=== PATIENT | male | born 1995 | race Caucasian/White ===

== ENCOUNTER 2018-07-14 10:10 | Observation (INO) ==
[2018-07-14] MEDS ORDERED: SODIUM CHLORIDE 0.9% 1000ML 2,000 ML IV SCH (11:00)
[2018-07-14] MEDS ORDERED: ACETAMINOPHEN 1,000 MG/100 ML VIAL IV STA (11:11)
[2018-07-14 12:07] LABS: Basophils # (auto) 0.01 K/uL (0-0.2); Basophils % (auto) 0.2 %; Eosinophils # (auto) 0.08 K/uL (0-0.5); Eosinophils % (auto) 1.7 %; Hematocrit (blood only) 47.5 % (42-52); Hemoglobin 15.5 g/dL (14.0-18.0); Immature Granulocytes # (auto) 0.01 K/uL (0.00-0.02); Immature Granulocytes % (auto) 0.2 %; Lymphocytes # (auto) 1.28 K/uL (1.2-3.4); Lymphocytes % (auto) 26.9 %; Mean Corpuscular Hgb Conc 32.6 g/dL (32-36); Mean Corpuscular Volume 92.6 fL (80-100); Mean Platelet Volume 10.9 fL (7.4-10.4); Monocytes # (auto) 0.46 K/uL (0.11-0.59); Monocytes % (auto) 9.7 %; Neutrophils # (auto) 2.91 K/uL (1.4-6.5); Neutrophils % (auto) 61.3 %; Platelet Count 147 K/uL (130-400); RDW Coefficient of Variation 13.6 % (11.5-14.5); Red Blood Count 5.13 M/uL (4.7-6.1); White Blood Count 4.75 K/uL (4.8-10.8)
[2018-07-14 12:21] LABS: Albumin Level 3.7 gm/dl (3.4-5.0); BUN Creatinine Ratio 9.2 (10-20); Calcium 8.3 mg/dl (8.5-10.1); Creatinine Clr Calc Pharmacy 119.2 ml/min; Est GFR (African American) 113.6; Potassium 4.1 mmol/L (3.5-5.1)
[2018-07-14 12:23] LABS: Albumin Globulin Ratio 0.8 (0.9-2); Bilirubin,Total 0.7 mg/dl (0.2-1); Globulin 4.4 gm/dl (2.5-4.0); Total Protein 8.1 gm/dl (6.4-8.2)
[2018-07-14 12:46] LABS: Influenza B virus by PCR Neg for Influ B (Neg)
[2018-07-14] MEDS ORDERED: IOVERSOL 100ml IV PRN (13:33)
--- NOTE | 2018-07-14 13:51 | CT Scan Report ---
CT abd pelvis IV con only CLINICAL HISTORY: 22 years-old Male presenting with RLQ pain. TECHNIQUE: Multidetector CT of the abdomen and pelvis was performed after the administration of intra venous contrast. IV contrast: 93 mL of Optiray 320. One or more dose lowering techniques were used co nsistent with the principles of ALARA (as low as reasonably achievable), including automatic exposure control, mA or kV adjustment to individual patient size, and/or use of iterative reconstruction. COMPARISON: None. CT DOSE (mGy.cm): The estimated cumulative dose is 336.77 mGy.cm. 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 Lung bases: Normal heart size. No pericardial or pleural effusion. No focal infiltrate or nodule at t he lung bases. Liver: Normal morphology. No liver lesion. Patent hepatic vasculature. Biliary: No intrahepatic or extrahepatic biliary ductal dilatation. Normal gallbladder. Pancreas: Normal. Spleen: Normal. Adrenal glands: Normal. Kidneys and ureters: Normal. No hydronephrosis. Bladder: Normal. Pelvic organs: Prostate and seminal vesicles normal. Bowel: Dilated and hyperemic appendix with some mucosal edema. Mild periappendiceal fat infiltration. The appendix diameter measures up to 10 mm. No bowel obstruction. Peritoneal cavity: Trace free fluid in the right lower quadrant. No free intraperitoneal or extra lum inal gas. Lymph nodes: No enlarged lymph nodes in the abdomen or pelvis. Vasculature: Aorta and IVC patent and normal in caliber. Abdominal wall: Normal. Musculoskeletal: Normal. IMPRESSION: 1. Acute uncomplicated appendicitis. Surgical consultation is necessary. The report will be called/faxed according to standard departmental protocol. Electronically signed by: Nir Tong M.D. 07/14/2018 1:50 PM
--- NOTE | 2018-07-14 14:01 | Emergency Department Note ---
Entered by Helen Delgadillo acting as a scribe for Luis Alfredo Nguyen MD History of Present Illness General Chief complaint: Abdominal Pain Stated complaint: STOMACH PAINS,FEVER,VOMITING Time Seen by Provider: 07/14/18 10:54 Source: patient History of Present Illness Provider complaint: abdominal pain Onset (ago): day(s) (yesterday) Location: abdomen Maximum Pain Intensity: 6 Quality: + other (pain) Associated symptoms: + denies other symptoms (denies urinary symptoms or testicular pain), + fever/chills (fevers), + loss of appetite and + nausea/vomiting The patient is a 22 year old male who presents to the Emergency Room with complaints of abdominal pain beginning yesterday. The patient rates his pain at a 6/10. He states that he had a fever several days ago. The patient states that he vomited 3 days ago. He denies having any urinary symptoms or testicular pain. The patient reports having a loss of appetite and states that he did not eat today. The patient denies a history of an appendectomy and a cholecystectomy and states that he does not have any medical problems. 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 and A total of 10 systems reviewed and were otherwise negative Physical Exam Vital Signs Vital Signs - 24 hr 07/14/18 10:27 07/14/18 11:45 07/14/18 12:11 Temperature 36.7 C 36.8 C Temperature Source Oral Oral Sepsis Recent Fever Within 48 Hours Yes Sepsis Action Taken by Nursing No Action Required Pulse Rate 93 H Pulse Rate [Left Apical] 53 L Pulse Rate [Left Finger] Pulse Rate from SpO2 Sensor Pulse Rhythm [Left Apical] Regular Pulse Rhythm [Left Finger] Pulse Strength [Left Apical] Normal Pulse Strength [Left Finger] Respiratory Rate 17 14 Respiratory Effort / Characteristics Non-Labored Non-Labored Spontaneous Respiratory Depth Normal Normal Respiratory Pattern Regular Blood Pressure 120/81 Blood Pressure [Right Arm] 128/73 Blood Pressure Mean 94 Blood Pressure Mean [Right Arm] 91 Blood Pressure Position [Right Arm] Lying Pulse Oximetry 98 99 Oxygen Delivery Method Room Air Room Air 07/14/18 12:20 07/14/18 12:30 07/14/18 12:40 Temperature Temperature Source Sepsis Recent Fever Within 48 Hours Sepsis Action Taken by Nursing Pulse Rate 60 58 L 58 L Pulse Rate [Left Apical] Pulse Rate [Left Finger] Pulse Rate from SpO2 Sensor Pulse Rhythm [Left Apical] Pulse Rhythm [Left Finger] Pulse Strength [Left Apical] Pulse Strength [Left Finger] Respiratory Rate 22 14 15 Respiratory Effort / Characteristics Respiratory Depth Respiratory Pattern Blood Pressure Blood Pressure [Right Arm] Blood Pressure Mean Blood Pressure Mean [Right Arm] Blood Pressure Position [Right Arm] Pulse Oximetry Oxygen Delivery Method 07/14/18 12:50 07/14/18 12:57 07/14/18 13:00 Temperature Temperature Source Sepsis Recent Fever Within 48 Hours Sepsis Action Taken by Nursing Pulse Rate 56 L 58 L 64 Pulse Rate [Left Apical] Pulse Rate [Left Finger] Pulse Rate from SpO2 Sensor 56 L Pulse Rhythm [Left Apical] Pulse Rhythm [Left Finger] Pulse Strength [Left Apical] Pulse Strength [Left Finger] Respiratory Rate 11 L 15 17 Respiratory Effort / Characteristics Respiratory Depth Respiratory Pattern Blood Pressure 128/73 Blood Pressure [Right Arm] Blood Pressure Mean 91 Blood Pressure Mean [Right Arm] Blood Pressure Position [Right Arm] Pulse Oximetry 99 Oxygen Delivery Method 07/14/18 13:10 07/14/18 13:20 07/14/18 14:00 Temperature Temperature Source Sepsis Recent Fever Within 48 Hours Sepsis Action Taken by Nursing Pulse Rate 64 71 Pulse Rate [Left Apical] 58 L Pulse Rate [Left Finger] Pulse Rate from SpO2 Sensor Pulse Rhythm [Left Apical] Regular Pulse Rhythm [Left Finger] Pulse Strength [Left Apical] Normal Pulse Strength [Left Finger] Respiratory Rate 14 17 16 Respiratory Effort / Characteristics Non-Labored Spontaneous Respiratory Depth Normal Respiratory Pattern Regular Blood Pressure Blood Pressure [Right Arm] Blood Pressure Mean Blood Pressure Mean [Right Arm] Blood Pressure Position [Right Arm] Pulse Oximetry 99 Oxygen Delivery Method Room Air 07/14/18 14:21 07/14/18 14:30 07/14/18 14:40 Temperature Temperature Source Sepsis Recent Fever Within 48 Hours Sepsis Action Taken by Nursing Pulse Rate 141 H 81 60 Pulse Rate [Left Apical] Pulse Rate [Left Finger] Pulse Rate from SpO2 Sensor Pulse Rhythm [Left Apical] Pulse Rhythm [Left Finger] Pulse Strength [Left Apical] Pulse Strength [Left Finger] Respiratory Rate 14 36 H 16 Respiratory Effort / Characteristics Respiratory Depth Respiratory Pattern Blood Pressure Blood Pressure [Right Arm] Blood Pressure Mean Blood Pressure Mean [Right Arm] Blood Pressure Position [Right Arm] Pulse Oximetry Oxygen Delivery Method 07/14/18 14:50 07/14/18 15:00 07/14/18 15:06 Temperature Temperature Source Sepsis Recent Fever Within 48 Hours Sepsis Action Taken by Nursing Pulse Rate 58 L 60 Pulse Rate [Left Apical] Pulse Rate [Left Finger] Pulse Rate from SpO2 Sensor Pulse Rhythm [Left Apical] Pulse Rhythm [Left Finger] Pulse Strength [Left Apical] Pulse Strength [Left Finger] Respiratory Rate 5 L 19 Respiratory Effort / Characteristics Respiratory Depth Respiratory Pattern Regular Blood Pressure Blood Pressure [Right Arm] Blood Pressure Mean Blood Pressure Mean [Right Arm] Blood Pressure Position [Right Arm] Pulse Oximetry Oxygen Delivery Method Room Air 07/14/18 15:10 07/14/18 15:20 07/14/18 15:30 Temperature Temperature Source Sepsis Recent Fever Within 48 Hours Sepsis Action Taken by Nursing Pulse Rate 59 L 61 58 L Pulse Rate [Left Apical] Pulse Rate [Left Finger] Pulse Rate from SpO2 Sensor Pulse Rhythm [Left Apical] Pulse Rhythm [Left Finger] Pulse Strength [Left Apical] Pulse Strength [Left Finger] Respiratory Rate 18 22 17 Respiratory Effort / Characteristics Respiratory Depth Respiratory Pattern Blood Pressure Blood Pressure [Right Arm] Blood Pressure Mean Blood Pressure Mean [Right Arm] Blood Pressure Position [Right Arm] Pulse Oximetry Oxygen Delivery Method 07/14/18 15:40 07/14/18 15:50 07/14/18 15:57 Temperature Temperature Source Sepsis Recent Fever Within 48 Hours Sepsis Action Taken by Nursing Pulse Rate 60 59 L Pulse Rate [Left Apical] Pulse Rate [Left Finger] Pulse Rate from SpO2 Sensor Pulse Rhythm [Left Apical] Pulse Rhythm [Left Finger] Pulse Strength [Left Apical] Pulse Strength [Left Finger] Respiratory Rate 19 12 Respiratory Effort / Characteristics Respiratory Depth Respiratory Pattern Blood Pressure 124/67 Blood Pressure [Right Arm] Blood Pressure Mean 86 Blood Pressure Mean [Right Arm] Blood Pressure Position [Right Arm] Pulse Oximetry Oxygen Delivery Method 07/14/18 16:00 07/14/18 16:03 07/14/18 16:10 Temperature Temperature Source Sepsis Recent Fever Within 48 Hours Sepsis Action Taken by Nursing Pulse Rate 56 L 56 L Pulse Rate [Left Apical] 57 L Pulse Rate [Left Finger] Pulse Rate from SpO2 Sensor Pulse Rhythm [Left Apical] Regular Pulse Rhythm [Left Finger] Pulse Strength [Left Apical] Normal Pulse Strength [Left Finger] Respiratory Rate 15 16 21 Respiratory Effort / Characteristics Non-Labored Spontaneous Respiratory Depth Normal Respiratory Pattern Regular Blood Pressure Blood Pressure [Right Arm] 124/67 Blood Pressure Mean Blood Pressure Mean [Right Arm] 86 Blood Pressure Position [Right Arm] Pulse Oximetry 97 Oxygen Delivery Method Room Air 07/14/18 16:20 07/14/18 16:30 07/14/18 16:40 Temperature Temperature Source Sepsis Recent Fever Within 48 Hours Sepsis Action Taken by Nursing Pulse Rate 56 L 58 L 62 Pulse Rate [Left Apical] Pulse Rate [Left Finger] Pulse Rate from SpO2 Sensor Pulse Rhythm [Left Apical] Pulse Rhythm [Left Finger] Pulse Strength [Left Apical] Pulse Strength [Left Finger] Respiratory Rate 15 14 11 L Respiratory Effort / Characteristics Respiratory Depth Respiratory Pattern Blood Pressure Blood Pressure [Right Arm] Blood Pressure Mean Blood Pressure Mean [Right Arm] Blood Pressure Position [Right Arm] Pulse Oximetry Oxygen Delivery Method 07/14/18 16:51 07/14/18 17:00 07/14/18 17:10 Temperature Temperature Source Sepsis Recent Fever Within 48 Hours Sepsis Action Taken by Nursing Pulse Rate 56 L 54 L 54 L Pulse Rate [Left Apical] Pulse Rate [Left Finger] Pulse Rate from SpO2 Sensor Pulse Rhythm [Left Apical] Pulse Rhythm [Left Finger] Pulse Strength [Left Apical] Pulse Strength [Left Finger] Respiratory Rate 17 17 7 L Respiratory Effort / Characteristics Respiratory Depth Respiratory Pattern Blood Pressure Blood Pressure [Right Arm] Blood Pressure Mean Blood Pressure Mean [Right Arm] Blood Pressure Position [Right Arm] Pulse Oximetry Oxygen Delivery Method 07/14/18 17:20 07/14/18 17:56 Temperature 36.8 C Temperature Source Oral Sepsis Recent Fever Within 48 Hours Sepsis Action Taken by Nursing Pulse Rate 54 L Pulse Rate [Left Apical] Pulse Rate [Left Finger] 54 L Pulse Rate from SpO2 Sensor Pulse Rhythm [Left Apical] Pulse Rhythm [Left Finger] Regular Pulse Strength [Left Apical] Pulse Strength [Left Finger] Normal Respiratory Rate 11 L 20 Respiratory Effort / Characteristics Non-Labored Spontaneous Respiratory Depth Normal Respiratory Pattern Blood Pressure Blood Pressure [Right Arm] 112/68 Blood Pressure Mean Blood Pressure Mean [Right Arm] 82 Blood Pressure Position [Right Arm] Lying Pulse Oximetry 94 Oxygen Delivery Method Room Air GENERAL: Awake, alert, uncomfortable-appearing, in no distress HENT: Normocephalic, atraumatic. Oropharynx with dry mucous membranes and otherwise unremarkable. EYES: Normal conjunctiva. Sclera non-icteric. NECK: Supple. No nuchal rigidity. FROM. No JVD. RESPIRATORY: Clear to auscultation. CARDIAC: Regular rate, normal rhythm. Extremities warm and well perfused. Pulses equal. ABDOMEN: Soft, non-distended. Moderate point tenderness at McBurney's point. Positive Rovsing's sign and rebound tenderness. No masses. RECTAL: Deferred. MUSCULOSKELETAL: Chest examination reveals no tenderness. The back is symmetr ical on inspection without obvious abnormality. There is no CVA tenderness to palpation. No joint edema. LOWER EXTREMITIES: Calves are equal size bilaterally and non-tender. No edema. No discoloration. NEURO: Normal sensorium. No sensory or motor deficits noted. SKIN: No rash or jaundice noted. Course 1109: Past medical records reviewed. The patient was evaluated in room C3, and a complete history and physical examination were performed. 1401: I updated the patient who verbalized agreement and understanding of the treatment plan. 1409: I discussed the patient's case with Dr. BermanGeneral Surgery who will evaluate the patient for further maangement. Consultations Consultation #1: Dr. Andrei Rojas Time: 14:09 Administered Medications Sodium Chloride (Nss 1000ml) 1,000 mls @ 125 mls/hr IV .Q8H MAURI Stop: 08/13/18 14:14 Last Admin: 07/14/18 15:00 Dose: 125 mls/hr Documented by: [id number] Discontinued Medications Sodium Chloride (Nss 1000ml) 2,000 mls @ 999 mls/hr IV .Q2H1M MAURI Stop: 07/14/18 13:00 Last Infusion: 07/14/18 17:23 Dose: 0 mls/hr Documented by: [id number] Admin: 07/14/18 11:50 Dose: 999 mls/hr Documented by: [id number] Acetaminophen (Ofirmev) 1,000 mg in 100 mls @ 400 mls/hr IV NOW STA Stop: 07/14/18 11:25 Last Infusion: 07/14/18 12:08 Dose: 0 mls/hr Documented by: [id number] Admin: 07/14/18 11:50 Dose: 400 mls/hr Documented by: [id number] Ioversol (Optiray 320 100ml) 93 ml IV ONCE PRN PRN Reason: Interaction Checking Stop: 07/18/18 13:32 Last Admin: 07/14/18 13:34 Dose: 93 ml Documented by: [id number] Morphine Sulfate (Morphine Sulfate) Confirm Administered Dose 4 mg .ROUTE .STK- MED ONE Stop: 07/14/18 16:38 Last Admin: 07/14/18 16:41 Dose: 4 mg Documented by: [id number] Ondansetron HCl (Zofran) Confirm Administered Dose 4 mg .ROUTE .STK-MED ONE Stop: 07/14/18 16:38 Last Admin: 07/14/18 16:41 Dose: 4 mg Documented by: [id number] Medical Decision Making Differential Diagnosis Differential diagnosis: Etiologies such as biliary colic, cholecystitis, hepatitis, pancreatitis, cardiac disease, pancreatitis, gastritis, peptic ulcer disease, appendicitis, cystitis, diverticulitis, mesenteric ischemia, inflammatory bowel disease, ileus, bowel obstruction, testicular torsion, aortic pathology, shingles, as well as others were considered. Medical Records Attestation: I reviewed the patient's medical records. Home Medications Current Medication List: was personally reviewed by me Laboratory Data Attestation: I reviewed the patient's lab results. Result diagrams: 07/14/18 11:45 07/14/18 11:45 Lab Results 07/14/18 07/14/18 07/14/18 Range/Units 11:45 11:45 11:45 WBC 4.75 L (4.8-10.8) K/uL RBC 5.13 (4.7-6.1) M/uL Hgb 15.5 (14.0-18.0) g/dL Hct 47.5 (42-52) % MCV 92.6 (80-100) fL MCH 30.2 (25-34) pg MCHC 32.6 (32-36) g/dL RDW Std Deviation 46.0 (36.4-46.3) fL RDW Coeff of Randy 13.6 (11.5-14.5) % Plt Count 147 (130-400) K/uL MPV 10.9 H (7.4-10.4) fL Immature Gran % (Auto) 0.2 % Neut % (Auto) 61.3 % Lymph % (Auto) 26.9 % [place] % (Auto) 9.7 % Eos % (Auto) 1.7 % Baso % (Auto) 0.2 % Immature Gran # (Auto) 0.01 (0.00-0.02) K/uL Neut # (Auto) 2.91 (1.4-6.5) K/uL Lymph # (Auto) 1.28 (1.2-3.4) K/uL [place] # (Auto) 0.46 (0.11-0.59) K/uL Eos # (Auto) 0.08 (0-0.5) K/uL Baso # (Auto) 0.01 (0-0.2) K/uL Sodium 135 L (136-145) mmol/L Potassium 4.1 (3.5-5.1) mmol/L Chloride 103 (98-107) mmol/L Carbon Dioxide 27 (21-32) mmol/L Anion Gap 5.0 (3-11) BUN 10 (7-18) mg/dl Creatinine 1.07 (0.6-1.4) mg/dl Est Cr Clr Drug Dosing 119.2 ml/min Est GFR ( Amer) 113.6 Est GFR (Non-Af Amer) 98.0 BUN/Creatinine Ratio 9.2 L (10-20) Glucose 83 (70-99) mg/dl Calcium 8.3 L (8.5-10.1) mg/dl Total Bilirubin 0.7 (0.2-1) mg/dl AST 17 (15-37) U/L ALT 23 (12-78) U/L Alkaline Phosphatase 70 (45-117) U/L Total Protein 8.1 (6.4-8.2) gm/dl Albumin 3.7 (3.4-5.0) gm/dl Globulin 4.4 H (2.5-4.0) gm/dl Albumin/Globulin Ratio 0.8 L (0.9-2) Lipase 111 (73-393) U/L Urine Color Urine Appearance (Clear) Urine pH (4.5-7.5) Ur Specific Bryan (1.000-1.030) Urine Protein (Negative) Urine Glucose (UA) (Negative) Urine Ketones (Negative) Urine Blood (Negative) Urine Nitrite (Negative) Urine Bilirubin (Negative) Urine Urobilinogen (Negative) Ur Leukocyte Esterase (Negative) Influenza Type A (PCR) Pos for Influ A A* (Neg) Influenza Type B (PCR) Neg for Influ B (Neg) 07/14/18 Range/Units 14:00 WBC (4.8-10.8) K/uL RBC (4.7-6.1) M/uL Hgb (14.0-18.0) g/dL Hct (42-52) % MCV (80-100) fL MCH (25-34) pg MCHC (32-36) g/dL RDW Std Deviation (36.4-46.3) fL RDW Coeff of Randy (11.5-14.5) % Plt Count (130-400) K/uL MPV (7.4-10.4) fL Immature Gran % (Auto) % Neut % (Auto) % Lymph % (Auto) % [place] % (Auto) % Eos % (Auto) % Baso % (Auto) % Immature Gran # (Auto) (0.00-0.02) K/uL Neut # (Auto) (1.4-6.5) K/uL Lymph # (Auto) (1.2-3.4) K/uL [place] # (Auto) (0.11-0.59) K/uL Eos # (Auto) (0-0.5) K/uL Baso # (Auto) (0-0.2) K/uL Sodium (136-145) mmol/L Potassium (3.5-5.1) mmol/L Chloride (98-107) mmol/L Carbon Dioxide (21-32) mmol/L Anion Gap (3-11) BUN (7-18) mg/dl Creatinine (0.6-1.4) mg/dl Est Cr Clr Drug Dosing ml/min Est GFR ( Amer) Est GFR (Non-Af Amer) BUN/Creatinine Ratio (10-20) Glucose (70-99) mg/dl Calcium (8.5-10.1) mg/dl Total Bilirubin (0.2-1) mg/dl AST (15-37) U/L ALT (12-78) U/L Alkaline Phosphatase (45-117) U/L Total Protein (6.4-8.2) gm/dl Albumin (3.4-5.0) gm/dl Globulin (2.5-4.0) gm/dl Albumin/Globulin Ratio (0.9-2) Lipase (73-393) U/L Urine Color Yellow Urine Appearance Clear (Clear) Urine pH 6.5 (4.5-7.5) Ur Specific Bryan 1.022 (1.000-1.030) Urine Protein Negative (Negative) Urine Glucose (UA) Negative (Negative) Urine Ketones Negative (Negative) Urine Blood Negative (Negative) Urine Nitrite Negative (Negative) Urine Bilirubin Negative (Negative) Urine Urobilinogen Negative (Negative) Ur Leukocyte Esterase Negative (Negative) Influenza Type A (PCR) (Neg) Influenza Type B (PCR) (Neg) Imaging Data Radiologist's Impression: Radiology results as stated below per my review and the radiologist's interpretation: CT abd pelvis IV con only CLINICAL HISTORY: 22 years-old Male presenting with RLQ pain. TECHNIQUE: Multidetector CT of the abdomen and pelvis was performed after the administration of intravenous contrast. IV contrast: 93 mL of Optiray 320. One or more dose lowering techniques were used consistent with the principles of ALARA (as low as reasonably achievable), including automatic exposure control, mA or kV adjustment to individual patient size, and/or use of iterative reconstruction. COMPARISON: None. CT DOSE (mGy.cm): The estimated cumulative dose is 336.77 mGy.cm. 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 Lung bases: Normal heart size. No pericardial or pleural effusion. No focal infiltrate or nodule at the lung bases. Liver: Normal morphology. No liver lesion. Patent hepatic vasculature. Biliary: No intrahepatic or extrahepatic biliary ductal dilatation. Normal gallbladder. Pancreas: Normal. Spleen: Normal. Adrenal glands: Normal. Kidneys and ureters: Normal. No hydronephrosis. Bladder: Normal. Pelvic organs: Prostate and seminal vesicles normal. Bowel: Dilated and hyperemic appendix with some mucosal edema. Mild periappendiceal fat infiltration. The appendix diameter measures up to 10 mm. No bowel obstruction. Peritoneal cavity: Trace free fluid in the right lower quadrant. No free in traperitoneal or extra luminal gas. Lymph nodes: No enlarged lymph nodes in the abdomen or pelvis. Vasculature: Aorta and IVC patent and normal in caliber. Abdominal wall: Normal. Musculoskeletal: Normal. IMPRESSION: 1. Acute uncomplicated appendicitis. Surgical consultation is necessary. The report will be called/faxed according to standard departmental protocol. Electronically signed by: Nir Tong M.D. 07/14/2018 1:50 PM Blood Pressure Blood Pressure Findings: Normal blood pressure MDM Narrative The patient is a pleasant 22-year-old gentleman who presents emergency department with right lower quadrant pain that began last night with associated nausea, anorexia, chills per hpi. Of note, patient reports experiencing upper respiratory congestion earlier in the week which is now resolved. On arrival the patient is in no acute distress, afebrile stable vital signs. The patient appears clinically dry. On exam the patient has moderate point tenderness over McBurney's point. He has positive rales beings and rebound tenderness. WBC 4.7, nonspecific. H/H and platelets within normal limits. History without acidosis. Lipase within normal limits. UA negative. Incidentally the patient was influenza A positive. However, CT abdomen pelvis is consistent with acute uncomplicated appendicitis with demonstrates dilated and hyperemic appendix with mucosal edema and mild periappendiceal fat infiltration. Appendix diameter measures up to 10 mm. Case was discussed with Dr. Ryan, General surgery, whose team will evaluate the patient for likely OR/admission. Patient was ordered for cefoxitin. Impression & Plan Appendicitis, Influenza A Discharge Plan Visit Data *Final* Discharge Date/Time: 07/14/18 17:31 Chief Complaint: Abdominal Pain Stated Complaint: STOMACH PAINS,FEVER,VOMITING ED Provider: Luis Alfredo Nguyen Discharge Problem: Appendicitis, Influenza A Patient Disposition: Admitted As Inpatient Discharge Instructions Interventions: ED Discharge Assessment Last Done: 07/14/18 17:31 The scribe's documentation has been prepared under my direction and personally reviewed by me in its entirety. I confirm that the note above accurately reflects all work, treatment, procedures, and medical decision making performed by me.
[2018-07-14] MEDS ORDERED: cefOXitin 1,000 MG/50 ML BAG IV STA (14:06)
[2018-07-14] MEDS ORDERED: SODIUM CHLORIDE 0.9% 1000ML 1,000 ML IV SCH (14:15)
[2018-07-14 14:33] LABS: Appearance Urine Clear (Clear); Bilirubin Urine Negative (Negative); Blood Urine Negative (Negative); Color Urine Yellow; Glucose Urine UA Negative (Negative); Ketones Urine Negative (Negative); Leukocyte Esterase Urine Negative (Negative); Nitrite Urine Negative (Negative); Protein Urine Negative (Negative); Specific Gravity Urine 1.022 (1.000-1.030); Urobilinogen Urine Negative (Negative); pH Urine 6.5 (4.5-7.5)
--- NOTE | 2018-07-14 16:29 | History & Physical Report ---
Date of Service July 14, 2018 Assessment & Plan (1) Acute appendicitis: 22 year-old male who presented to emergency room with 24 hours history of abdominal pain, nausea and vomiting in setting of recent flu diagnosis. Now pain located in RLQ. CT scan of abdomen and pelvis showing dilated appendix at 10 mm which is hyperemic and moderate periappendiceal inflammation but no evidence of perforation/abscess consistent with uncomplicated appendicitis. Labs show no leukocytosis. Vitals stable. Plan: Given findings of ct scan recommend laparoscopic appendectomy. Discussed procedure and risks including bleeding, infection, injury to surrounding organs/tissues, cardiopulmonary complications, including blood clots with patient and his family. Informed consent will be obtained with Dr. Ryan/Dr. Rollins prior to procedure He will be admitted to med/surg preoperatively awaiting for OR availability Start IV fluids at 125 mls/hr, IV morphine prn pain, IV Zofran prn nausea, activity as tolerated, SCDs, and Cefoxitin on hold to be given preoperatively. Discussed patient with Dr. Ryan/Dr. Rollins who will evaluate patient preoperatively. History of Present Illness Chief Complaint: Abdominal pain Primary Care Provider: [facility] PCP Yoni is a pleasant 22 year-old male who presented to emergency room with complaint of abdominal pain with associated nausea and vomiting x 3 that began yesterday morning when he woke up. States pain was located in general mid abdomen and now in the right lower side. Sharp pain. States he had 3 episodes of vomiting. Was diagnosed with the flu. Had fever, chills, and weakness on Wednesday. States he hasn't wanted to eat much or drink many fluids so he might be dehydrated. Denies of any changes in his bowel habits, diarrhea, constipation, blood in stools, difficulty urinating, chest pain, shortness of breath, or difficulty breathing. ER work-up included labs which showed no leukocytosis. CT scan of abdomen and pelvis showed dilated hyperemic appendix measuring 10 mm with moderate periappendiceal inflammation but no signs of perforation or abscess consistent with uncomplicated appendicitis. 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 Beliefs That Will Affect Care: Jain Current Living Situation: Alone Other Information That Helps Us Care for You: No Feels Safe at Home: Yes Safety Concerns: Feels Safe At This Time Smoking Status: Never smoker Hx Alcohol Use: Yes Hx Substance Use: No Review of Systems All systems reviewed & are unremarkable except as noted in HPI & below Physical Exam Vital Signs (Past 24 Hours): Last Vital Signs Temp 36.8 C 07/14/18 12:11 Pulse 58 L 07/14/18 14:00 Resp 16 07/14/18 14:00 BP 128/73 07/14/18 12:11 Pulse Ox 99 07/14/18 14:00 Constitutional: WD/WN, vitals as above + thin; no acute distress Neck: trachea midline Respiratory: normal respiratory effort, lungs clear to auscultation Cardiovascular: RRR, no murmur, no edema Gastrointestinal (Abdomen): Inspection/Auscultation: abdomen normal to inspection; abdomen not distended and + abnormal bowel sounds Percussion/Palpation: + abdomen tender (RLQ with positive [place] sign), + guarding (RLQ) and abdomen soft Skin: no rashes, warm and dry + pallor Psychiatric: A+Ox3, euthymic affect Results & Data Laboratory Results 07/14/18 07/14/18 07/14/18 Range/Units 14:00 11:45 11:45 WBC (4.8-10.8) K/uL RBC (4.7-6.1) M/uL Hgb (14.0-18.0) g/dL Hct (42-52) % MCV (80-100) fL MCH (25-34) pg MCHC (32-36) g/dL RDW Std Deviation (36.4-46.3) fL RDW Coeff of Randy (11.5-14.5) % Plt Count (130-400) K/uL MPV (7.4-10.4) fL Immature Gran % (Auto) % Neut % (Auto) % Lymph % (Auto) % [place] % (Auto) % Eos % (Auto) % Baso % (Auto) % Immature Gran # (Auto) (0.00-0.02) K/uL Neut # (Auto) (1.4-6.5) K/uL Lymph # (Auto) (1.2-3.4) K/uL [place] # (Auto) (0.11-0.59) K/uL Eos # (Auto) (0-0.5) K/uL Baso # (Auto) (0-0.2) K/uL Sodium 135 L (136-145) mmol/L Potassium 4.1 (3.5-5.1) mmol/L Chloride 103 (98-107) mmol/L Carbon Dioxide 27 (21-32) mmol/L Anion Gap 5.0 (3-11) BUN 10 (7-18) mg/dl Creatinine 1.07 (0.6-1.4) mg/dl Est Cr Clr Drug Dosing 119.2 ml/min Est GFR ( Amer) 113.6 Est GFR (Non-Af Amer) 98.0 BUN/Creatinine Ratio 9.2 L (10-20) Glucose 83 (70-99) mg/dl Calcium 8.3 L (8.5-10.1) mg/dl Total Bilirubin 0.7 (0.2-1) mg/dl AST 17 (15-37) U/L ALT 23 (12-78) U/L Alkaline Phosphatase 70 (45-117) U/L Total Protein 8.1 (6.4-8.2) gm/dl Albumin 3.7 (3.4-5.0) gm/dl Globulin 4.4 H (2.5-4.0) gm/dl Albumin/Globulin Ratio 0.8 L (0.9-2) Lipase 111 (73-393) U/L Urine Color Yellow Urine Appearance Clear (Clear) Urine pH 6.5 (4.5-7.5) Ur Specific [place] 1.022 (1.000-1.030) Urine Protein Negative (Negative) Urine Glucose (UA) Negative (Negative) Urine Ketones Negative (Negative) Urine Blood Negative (Negative) Urine Nitrite Negative (Negative) Urine Bilirubin Negative (Negative) Urine Urobilinogen Negative (Negative) Ur Leukocyte Esterase Negative (Negative) Influenza Type A (PCR) Pos for Influ A A* (Neg) Influenza Type B (PCR) Neg for Influ B (Neg) 07/14/18 Range/Units 11:45 WBC 4.75 L (4.8-10.8) K/uL RBC 5.13 (4.7-6.1) M/uL Hgb 15.5 (14.0-18.0) g/dL Hct 47.5 (42-52) % MCV 92.6 (80-100) fL MCH 30.2 (25-34) pg MCHC 32.6 (32-36) g/dL RDW Std Deviation 46.0 (36.4-46.3) fL RDW Coeff of Randy 13.6 (11.5-14.5) % Plt Count 147 (130-400) K/uL MPV 10.9 H (7.4-10.4) fL Immature Gran % (Auto) 0.2 % Neut % (Auto) 61.3 % Lymph % (Auto) 26.9 % [place] % (Auto) 9.7 % Eos % (Auto) 1.7 % Baso % (Auto) 0.2 % Immature Gran # (Auto) 0.01 (0.00-0.02) K/uL Neut # (Auto) 2.91 (1.4-6.5) K/uL Lymph # (Auto) 1.28 (1.2-3.4) K/uL [place] # (Auto) 0.46 (0.11-0.59) K/uL Eos # (Auto) 0.08 (0-0.5) K/uL Baso # (Auto) 0.01 (0-0.2) K/uL Sodium (136-145) mmol/L Potassium (3.5-5.1) mmol/L Chloride (98-107) mmol/L Carbon Dioxide (21-32) mmol/L Anion Gap (3-11) BUN (7-18) mg/dl Creatinine (0.6-1.4) mg/dl Est Cr Clr Drug Dosing ml/min Est GFR ( Amer) Est GFR (Non-Af Amer) BUN/Creatinine Ratio (10-20) Glucose (70-99) mg/dl Calcium (8.5-10.1) mg/dl Total Bilirubin (0.2-1) mg/dl AST (15-37) U/L ALT (12-78) U/L Alkaline Phosphatase (45-117) U/L Total Protein (6.4-8.2) gm/dl Albumin (3.4-5.0) gm/dl Globulin (2.5-4.0) gm/dl Albumin/Globulin Ratio (0.9-2) Lipase (73-393) U/L Urine Color Urine Appearance (Clear) Urine pH (4.5-7.5) Ur Specific [place] (1.000-1.030) Urine Protein (Negative) Urine Glucose (UA) (Negative) Urine Ketones (Negative) Urine Blood (Negative) Urine Nitrite (Negative) Urine Bilirubin (Negative) Urine Urobilinogen (Negative) Ur Leukocyte Esterase (Negative) Influenza Type A (PCR) (Neg) Influenza Type B (PCR) (Neg) Diagnostic Findings CT abd pelvis IV con only CLINICAL HISTORY: 22 years-old Male presenting with RLQ pain. TECHNIQUE: Multidetector CT of the abdomen and pelvis was performed after the a dministration of intravenous contrast. IV contrast: 93 mL of Optiray 320. One or more dose lowering techniques were used consistent with the principles of ALARA (as low as reasonably achievable), including automatic exposure control, mA or kV adjustment to individual patient size, and/or use of iterative reconstruction. COMPARISON: None. CT DOSE (mGy.cm): The estimated cumulative dose is 336.77 mGy.cm. FINDINGS: Spa Manager topogram: Unremarkable. Lung bases: Normal heart size. No pericardial or pleural effusion. No focal infiltrate or nodule at the lung bases. Liver: Normal morphology. No liver lesion. Patent hepatic vasculature. Biliary: No intrahepatic or extrahepatic biliary ductal dilatation. Normal gallbladder. Pancreas: Normal. Spleen: Normal. Adrenal glands: Normal. Kidneys and ureters: Normal. No hydronephrosis. Bladder: Normal. Pelvic organs: Prostate and seminal vesicles normal. Bowel: Dilated and hyperemic appendix with some mucosal edema. Mild periappendiceal fat infiltration. The appendix diameter measures up to 10 mm. No bowel obstruction. Peritoneal cavity: Trace free fluid in the right lower quadrant. No free intraperitoneal or extra luminal gas. Lymph nodes: No enlarged lymph nodes in the abdomen or pelvis. Vasculature: Aorta and IVC patent and normal in caliber. Abdominal wall: Normal. Musculoskeletal: Normal. IMPRESSION: 1. Acute uncomplicated appendicitis. Surgical consultation is necessary. Code Status & VTE Plan VTE Prophylaxis Plan VTE Prophylaxis will be ordered: Yes Supervising Physician Co-Signing Physician Notes I have seen and evaluated the patient and agree with the above by Lillian Silverio PA-C. 22 yo male with the flu and acute appendicitis. Risks, benefits, and alternatives were discussed with the patient regarding tx with antibiotics vs laparoscopic, possible open, appendectomy. Risks include but are not limited to pain, scarring, bleeding, leak, hernia, abscess, need for additional procedures, blood clots, breathing problems, heart attack, stroke, and .
[2018-07-14] MEDS ORDERED: MoRPHine SULFATE 4 MG/ML 1 ML CARP\\VIAL ONE (16:37)
[2018-07-14] MEDS ORDERED: ONDANSETRON INJ 2 MG/ML 2 ML VIAL ONE ×2 (16:37→21:07)
[2018-07-14] MEDS ORDERED: MoRPHine SULFATE 4 MG/ML 1 ML CARP\\VIAL IV PRN ×2 (17:53)
[2018-07-14] MEDS ORDERED: ONDANSETRON INJ 2 MG/ML 2 ML VIAL IV PRN ×2 (17:53→20:13)
[2018-07-14] MEDS ORDERED: MoRPHine SULFATE 10 MG/ML CARP/VIAL IV PRN (17:53)
[2018-07-14] MEDS ORDERED: OXYCODONE/ACETAMINOPHEN 5mg/325mg TAB PO PRN (17:53)
[2018-07-14] MEDS ORDERED: fentaNYL citrate 100 MCG/2 ML VIAL ONE ×4 (20:01→22:10)
[2018-07-14] MEDS ORDERED: HEPARIN (PORCINE) 1000 UNIT/ML 10 ML (CATH LAB USE ONLY) ONE (20:11)
[2018-07-14] MEDS ORDERED: CEFAZOLIN 250 MG/ML 1 GM VIAL ONE (20:12)
[2018-07-14] MEDS ORDERED: BUPIVACAINE 0.5 % 5 MG/1 ML MPF 30ML VIAL ONE (20:12)
[2018-07-14] MEDS ORDERED: ePHEDrine sulfate 50 MG/ML AMP IV PRN (20:13)
[2018-07-14] MEDS ORDERED: ATROPINE SULFATE 0.1 MG/ML 10ML SYR IV PRN (20:13)
--- NOTE | 2018-07-14 20:13 | Anesthesiology Consultation ---
Date of Service July 14, 2018 Assessment & Plan (1) Encounter for pre-operative examination: Chart Review Chart Review: Acceptable Risk for Surgery Consults Requested none ASA [id number] Proposed Anesthesia Anesthesia Type: General Risk / Benefits Reviewed With: PT / POA / Parent / Guardian, Accepts Plan and Informed Consent Obtained NPO Date Last Intake of Fluids: 07/14/18 Time Last Intake of Fluids: 09:00 Date Last Intake of Solids: 07/13/18 Time Last Intake of Solids: 20:00 History Surgery Operation Date: 07/14/18 09:20 Proposed Procedures p Laparoscopic Appendectomy - Karla Ryan MD Height/Weight Height: 6 ft 2 in Weight: 77.8 kg Allergies Allergy/AdvReac Type Severity Reaction Status Date / Time No Known Allergies Allergy Unverified 07/14/18 12:13 Medications Home Medications Medication Instructions Recorded Confirmed Last Taken No Known Home Medications 07/14/18 07/14/18 Unknown Active Medications Generic Name Dose Route Start Last Admin Trade Name Freq PRN Reason Stop Dose Admin Sodium Chloride 1,000 mls @ 125 mls/hr 07/14/18 14:15 07/14/18 15:00 Nss 1000ml IV 08/13/18 14:14 125 mls/hr .Q8H MAURI Administration Past Medical History Medical History No active medical problems (Acute) Past Surgical History Surgical History H/O wisdom tooth extraction Past Anesthesia History No Hx of Anesthesia Complications and No Family Hx of Anesthesia Complications History of PONV No Motion Sickness Screening History of Motion Sickness: No Social History Smoking Status: Never smoker Hx Alcohol Use: Yes Alcohol Intake Frequency Comment: about 3 drinks about 2 days/week Hx Substance Use: No Exercise / Class Metabolic Activity 1 > 8 Run/Swim/Ski/Tennis Physical Exam Vital Signs Last Vital Signs Temp 98.2 F 07/14/18 17:56 Pulse 54 L 07/14/18 17:56 Resp 20 07/14/18 17:56 BP 112/68 07/14/18 17:56 Pulse Ox 94 07/14/18 17:56 ENMT Mouth: no dentition abnormality Thyromental Distance: > or= 3.5 Finger Breadths Mallampati Class: II Neck normal visual inspection Respiratory normal respiratory effort Auscultation: lungs clear to auscultation bilaterally Cardiovascular Rate/Rhythm: regular rate and regular rhythm Testing Laboratory Results 07/14/18 11:45 07/14/18 11:45 Urine Color Yellow 07/14/18 14:00 Urine Appearance Clear (Clear) 07/14/18 14:00 Urine pH 6.5 (4.5-7.5) 07/14/18 14:00 Ur Specific [place] 1.022 (1.000-1.030) 07/14/18 14:00 Urine Protein Negative (Negative) 07/14/18 14:00 Urine Glucose (UA) Negative (Negative) 07/14/18 14:00 Urine Ketones Negative (Negative) 07/14/18 14:00 Urine Nitrite Negative (Negative) 07/14/18 14:00 Ur Leukocyte Esterase Negative (Negative) 07/14/18 14:00
[2018-07-14] MEDS ORDERED: ROCURONIUM BROMIDE 10 MG/ML 5 ML VIAL ONE (21:01)
[2018-07-14] MEDS ORDERED: LIDOCAINE HCL 2% 2 ML VIAL/AMP(20MG/ML) INFIL ONE (21:01)
[2018-07-14] MEDS ORDERED: PROPOFOL IV EMULSION 10 MG/ML 20 ML VIAL IV ONE (21:01)
[2018-07-14] MEDS ORDERED: SUCCINYLCHOLINE CHLORIDE 20 MG/ML 10 ML VIAL ONE (21:01)
--- NOTE | 2018-07-14 21:39 | Post Operative Brief Note ---
Immediate Post Op Note v1 Date of Surgery July 14, 2018 Pre & Post Diagnosis Operation Date: 07/14/18 09:20 Pre-Op Diagnosis: ACUTE APPENDICITIS Post-Op Diagnosis: ACUTE APPENDICITIS Procedure Operation Date: 07/14/18 09:20 Actual Procedures p Laparoscopic Appendectomy(Not Applicable) - Hossein Rollins MD Surgeon Hossein Rollins MD Electrician Telephone None Estimated Blood Loss 5 Findings Consistent with Post-Op Diagnosis Specimens Appendix Drains Bryant Catheter Complications none
[2018-07-14] MEDS: fentaNYL citrate 100 MCG/2 ML VIAL IV PRN ×4 (22:00→22:15)
--- NOTE | 2018-07-14 22:27 | Anesthesiology Progress Note ---
Date of Service July 14, 2018 Anesthesia Post Procedure Vital Signs Vital Signs: Temp Pulse Pulse Pulse Resp BP BP 07/14/18 22:20 54 L 16 145/79 H 07/14/18 22:10 54 L 16 149/88 H 07/14/18 22:00 54 L 16 157/88 H 07/14/18 21:51 97.5 F L 59 L 16 140/87 07/14/18 17:56 98.2 F 54 L 20 112/68 07/14/18 17:20 54 L 11 L 07/14/18 17:10 54 L 7 L 07/14/18 17:00 54 L 17 07/14/18 16:51 56 L 17 07/14/18 16:40 62 11 L 07/14/18 16:30 58 L 14 07/14/18 16:20 56 L 15 07/14/18 16:10 56 L 21 07/14/18 16:03 56 L 16 07/14/18 16:00 57 L 15 124/67 07/14/18 15:57 124/67 07/14/18 15:50 59 L 12 07/14/18 15:40 60 19 07/14/18 15:30 58 L 17 07/14/18 15:20 61 22 07/14/18 15:10 59 L 18 07/14/18 15:00 60 19 07/14/18 14:50 58 L 5 L 07/14/18 14:40 60 16 07/14/18 14:30 81 36 H 07/14/18 14:21 141 H 14 07/14/18 14:00 58 L 16 07/14/18 13:20 71 17 07/14/18 13:10 64 14 07/14/18 13:00 64 17 07/14/18 12:57 58 L 15 128/73 07/14/18 12:50 56 L 11 L 07/14/18 12:40 58 L 15 07/14/18 12:30 58 L 14 07/14/18 12:20 60 22 07/14/18 12:11 98.2 F 53 L 14 128/73 07/14/18 10:27 98.1 F 93 H 17 120/81 Pulse Ox 07/14/18 22:20 94 07/14/18 22:10 100 07/14/18 22:00 100 07/14/18 21:51 100 07/14/18 17:56 94 07/14/18 17:20 07/14/18 17:10 07/14/18 17:00 07/14/18 16:51 07/14/18 16:40 07/14/18 16:30 07/14/18 16:20 07/14/18 16:10 07/14/18 16:03 07/14/18 16:00 97 07/14/18 15:57 07/14/18 15:50 07/14/18 15:40 07/14/18 15:30 07/14/18 15:20 07/14/18 15:10 07/14/18 15:00 07/14/18 14:50 07/14/18 14:40 07/14/18 14:30 07/14/18 14:21 07/14/18 14:00 99 07/14/18 13:20 07/14/18 13:10 07/14/18 13:00 07/14/18 12:57 99 07/14/18 12:50 07/14/18 12:40 07/14/18 12:30 07/14/18 12:20 07/14/18 12:11 99 07/14/18 10:27 98 Pain Intensity Right Lower Abdomen: Pain Intensity: 5 Notes Mental Status: alert / awake / arousable and participated in evaluation Patient Amnestic to Procedure: Yes Nausea / Vomiting: adequately controlled Pain: adequately controlled Airway Patency, RR, SpO2: stable & adequate BP & HR: stable & adequate Hydration State: stable & adequate Anesthetic Complications: no major complications apparent and Pt Satisfied with anesthetic care
[2018-07-14] MEDS: D5W AND 1/2NSS + 20MEQ KCL 20 MEQ/1,000 ML BAG IV SCH (23:36)
[2018-07-14] MEDS: MoRPHine SULFATE 4 MG/ML 1 ML CARP\\VIAL IV PRN (23:36)
--- NOTE | 2018-07-15 00:31 | Operative Report ---
DATE OF OPERATION: 07/14/2018 PREOPERATIVE DIAGNOSIS: Acute appendicitis. POSTOPERATIVE DIAGNOSIS: Same. PROCEDURE: Laparoscopic appendectomy. SURGEON: Hossein Rollins MD FINDINGS: The appendix was dilated and hyperemic and firm. The proximal 1 cm was normal. The base of the appendix at the cecum was normal as was the cecum. There was no evidence of perforation or abscess. TECHNIQUE: The patient was given a general anesthetic and the area was prepped and draped in the usual sterile fashion. Transverse incision was made below the umbilicus, carried down through the subcutaneous tissue to the fascia which was grasped with 2 Justin clamps and incised between. The peritoneum was identified, incised, and the introducer was placed bluntly. The abdomen was then insufflated to a pressure of 15 mmHg with carbon dioxide. The lower midline introducer was placed under direct vision through small skin incisions. Traction was placed superiorly on the cecum and the appendix was identified. The left lower quadrant introducer was then placed under direct vision through a small skin incision. Traction was placed anteriorly on the appendix. There were adhesions to the lateral abdominal wall that were taken down using blunt and cautery dissection where appropriate. This dissection was carried proximally along the appendix. There were then some adhesions to the cecum that were divided using blunt dissection freeing the appendix even further. There were then some adhesions of the mesoappendix immediately that were divided. That allowed me to fully elevate the appendix and identify the base of the appendix and its connection with the cecum. I was able to establish a plane between the mesoappendix and the appendix at the base and the mesoappendix was divided using the Endo-GONZALES stapler. There was no bleeding from the staple line. That allowed me to confirm the fact that I was at the base of the appendix. The appendix was then amputated using the Endo-GONZALES. The appendix was placed into an Endobag and brought out through the left lower quadrant introducer site. That introducer was replaced. The right lower quadrant was irrigated and the irrigation was removed. The staple lines were inspected and there was no bleeding. The right lower quadrant was again irrigated. The irrigation was removed and the areas of dissection were inspected and there was no oozing. Any irrigation that entered the right upper quadrant was removed and any irrigation that entered the pelvis was removed. The gas was allowed to escape and introducers were removed. The fascia of the umbilical and left lower quadrant introducer sites was closed with interrupted 0 Vicryl and the skin of all the incisions was closed with 4-0 Monocryl in either an interrupted or running subcuticular fashion. The skin was anesthetized with 0.5% Marcaine. The skin was cleansed, dried, benzoin placed, Steri-Strips applied. The estimated blood loss was 5 mL. Sponge, needle and instrument counts were correct prior to closure. The patient tolerated the surgical procedure without complication and was transferred to recovery. I attest to the content of the Intraoperative Record and any orders documented therein. Any exception s are noted below.
[2018-07-15] MEDS: MoRPHine SULFATE 4 MG/ML 1 ML CARP\\VIAL IV PRN ×3 (01:45→15:46)
[2018-07-15] MEDS: OXYCODONE/ACETAMINOPHEN 5mg/325mg TAB PO PRN ×3 (05:12→23:29)
--- NOTE | 2018-07-15 08:29 | Anesthesiology Progress Note ---
Date of Service July 15, 2018 Anesthesia Post Procedure Vital Signs Vital Signs: Temp Pulse Pulse Pulse Resp BP BP 07/15/18 07:45 36.3 C L 62 16 114/70 07/15/18 03:53 36.3 C L 60 16 107/64 07/15/18 01:40 36.4 C L 70 16 128/76 07/15/18 00:33 36.5 C 58 L 16 111/70 07/14/18 23:30 36.3 C L 53 L 16 135/74 07/14/18 23:06 36.3 C L 48 L 16 122/78 07/14/18 22:30 36.8 C 52 L 16 123/73 07/14/18 22:20 54 L 16 145/79 H 07/14/18 22:10 54 L 16 149/88 H 07/14/18 22:00 54 L 16 157/88 H 07/14/18 21:51 36.4 C L 59 L 16 140/87 07/14/18 17:56 36.8 C 54 L 20 112/68 07/14/18 17:20 54 L 11 L 07/14/18 17:10 54 L 7 L 07/14/18 17:00 54 L 17 07/14/18 16:51 56 L 17 07/14/18 16:40 62 11 L 07/14/18 16:30 58 L 14 07/14/18 16:20 56 L 15 07/14/18 16:10 56 L 21 07/14/18 16:03 56 L 16 07/14/18 16:00 57 L 15 124/67 07/14/18 15:57 124/67 07/14/18 15:50 59 L 12 07/14/18 15:40 60 19 07/14/18 15:30 58 L 17 07/14/18 15:20 61 22 07/14/18 15:10 59 L 18 07/14/18 15:00 60 19 07/14/18 14:50 58 L 5 L 07/14/18 14:40 60 16 07/14/18 14:30 81 36 H 07/14/18 14:21 141 H 14 07/14/18 14:00 58 L 16 07/14/18 13:20 71 17 07/14/18 13:10 64 14 07/14/18 13:00 64 17 07/14/18 12:57 58 L 15 128/73 07/14/18 12:50 56 L 11 L 07/14/18 12:40 58 L 15 07/14/18 12:30 58 L 14 07/14/18 12:20 60 22 07/14/18 12:11 36.8 C 53 L 14 128/73 07/14/18 10:27 36.7 C 93 H 17 120/81 Pulse Ox 07/15/18 07:45 97 07/15/18 03:53 100 07/15/18 01:40 100 07/15/18 00:33 100 07/14/18 23:30 100 07/14/18 23:06 100 07/14/18 22:30 97 07/14/18 22:20 94 07/14/18 22:10 100 07/14/18 22:00 100 07/14/18 21:51 100 07/14/18 17:56 94 07/14/18 17:20 07/14/18 17:10 07/14/18 17:00 07/14/18 16:51 07/14/18 16:40 07/14/18 16:30 07/14/18 16:20 07/14/18 16:10 07/14/18 16:03 07/14/18 16:00 97 07/14/18 15:57 07/14/18 15:50 07/14/18 15:40 07/14/18 15:30 07/14/18 15:20 07/14/18 15:10 07/14/18 15:00 07/14/18 14:50 07/14/18 14:40 07/14/18 14:30 07/14/18 14:21 07/14/18 14:00 99 07/14/18 13:20 07/14/18 13:10 07/14/18 13:00 07/14/18 12:57 99 07/14/18 12:50 07/14/18 12:40 07/14/18 12:30 07/14/18 12:20 07/14/18 12:11 99 07/14/18 10:27 98 Pain Intensity Right Lower Abdomen: Pain Intensity: 9 Notes Mental Status: alert / awake / arousable Patient Amnestic to Procedure: Yes Nausea / Vomiting: adequately controlled Pain: adequately controlled Airway Patency, RR, SpO2: stable & adequate BP & HR: stable & adequate Hydration State: stable & adequate Anesthetic Complications: no major complications apparent and Pt Satisfied with anesthetic care
--- NOTE | 2018-07-15 10:01 | Surgery Progress Note ---
Date of Service July 15, 2018 Assessment & Plan (1) Acute appendicitis: POD # 1 s/p lap appy -vital stable - moderate post op pain - no n/v Plan: Regular diet for breakfast OOB to chair and ambulate continue PO Percocet for pain and Breakthrough fill evaluate later today to see if improved possibly discharge later today or tomorrow morning Dr. Rollins has seen and examined pt, agrees with above. Subjective pain at incision sites, preop pain resolved moderate pain has not had breakfast yet this morning no nausea or vomiting urinating without difficulty Physical Exam Vital Signs (Past 24 Hours): Last Vital Signs Temp 36.3 C L 07/15/18 07:45 Pulse 62 07/15/18 07:45 Resp 16 07/15/18 07:45 BP 114/70 07/15/18 07:45 Pulse Ox 97 07/15/18 07:45 Constitutional: WD/WN, vitals as above no acute distress and not ill appearing Respiratory: no respiratory distress Gastrointestinal (Abdomen): Inspection/Auscultation: + abdominal surgical incision (Covered with steri strips/ clean/dry/intact); abdomen not distended Percussion/Palpation: + abdomen tender (at incision sites and RLQ appropriate post op) and abdomen soft; no guarding and abdomen not rigid Skin: no rashes, warm and dry Psychiatric: A+Ox3, euthymic affect Results & Data Laboratory Results 07/14/18 07/14/18 07/14/18 Range/Units 14:00 11:45 11:45 WBC (4.8-10.8) K/uL RBC (4.7-6.1) M/uL Hgb (14.0-18.0) g/dL Hct (42-52) % MCV (80-100) fL MCH (25-34) pg MCHC (32-36) g/dL RDW Std Deviation (36.4-46.3) fL RDW Coeff of Randy (11.5-14.5) % Plt Count (130-400) K/uL MPV (7.4-10.4) fL Immature Gran % (Auto) % Neut % (Auto) % Lymph % (Auto) % Clark % (Auto) % Eos % (Auto) % Baso % (Auto) % Immature Gran # (Auto) (0.00-0.02) K/uL Neut # (Auto) (1.4-6.5) K/uL Lymph # (Auto) (1.2-3.4) K/uL Clark # (Auto) (0.11-0.59) K/uL Eos # (Auto) (0-0.5) K/uL Baso # (Auto) (0-0.2) K/uL Sodium 135 L (136-145) mmol/L Potassium 4.1 (3.5-5.1) mmol/L Chloride 103 (98-107) mmol/L Carbon Dioxide 27 (21-32) mmol/L Anion Gap 5.0 (3-11) BUN 10 (7-18) mg/dl Creatinine 1.07 (0.6-1.4) mg/dl Est Cr Clr Drug Dosing 119.2 ml/min Est GFR ( Amer) 113.6 Est GFR (Non-Af Amer) 98.0 BUN/Creatinine Ratio 9.2 L (10-20) Glucose 83 (70-99) mg/dl Calcium 8.3 L (8.5-10.1) mg/dl Total Bilirubin 0.7 (0.2-1) mg/dl AST 17 (15-37) U/L ALT 23 (12-78) U/L Alkaline Phosphatase 70 (45-117) U/L Total Protein 8.1 (6.4-8.2) gm/dl Albumin 3.7 (3.4-5.0) gm/dl Globulin 4.4 H (2.5-4.0) gm/dl Albumin/Globulin Ratio 0.8 L (0.9-2) Lipase 111 (73-393) U/L Urine Color Yellow Urine Appearance Clear (Clear) Urine pH 6.5 (4.5-7.5) Ur Specific [place] 1.022 (1.000-1.030) Urine Protein Negative (Negative) Urine Glucose (UA) Negative (Negative) Urine Ketones Negative (Negative) Urine Blood Negative (Negative) Urine Nitrite Negative (Negative) Urine Bilirubin Negative (Negative) Urine Urobilinogen Negative (Negative) Ur Leukocyte Esterase Negative (Negative) Influenza Type A (PCR) Pos for Influ A A* (Neg) Influenza Type B (PCR) Neg for Influ B (Neg) 07/14/18 Range/Units 11:45 WBC 4.75 L (4.8-10.8) K/uL RBC 5.13 (4.7-6.1) M/uL Hgb 15.5 (14.0-18.0) g/dL Hct 47.5 (42-52) % MCV 92.6 (80-100) fL MCH 30.2 (25-34) pg MCHC 32.6 (32-36) g/dL RDW Std Deviation 46.0 (36.4-46.3) fL RDW Coeff of Randy 13.6 (11.5-14.5) % Plt Count 147 (130-400) K/uL MPV 10.9 H (7.4-10.4) fL Immature Gran % (Auto) 0.2 % Neut % (Auto) 61.3 % Lymph % (Auto) 26.9 % Clark % (Auto) 9.7 % Eos % (Auto) 1.7 % Baso % (Auto) 0.2 % Immature Gran # (Auto) 0.01 (0.00-0.02) K/uL Neut # (Auto) 2.91 (1.4-6.5) K/uL Lymph # (Auto) 1.28 (1.2-3.4) K/uL Clark # (Auto) 0.46 (0.11-0.59) K/uL Eos # (Auto) 0.08 (0-0.5) K/uL Baso # (Auto) 0.01 (0-0.2) K/uL Sodium (136-145) mmol/L Potassium (3.5-5.1) mmol/L Chloride (98-107) mmol/L Carbon Dioxide (21-32) mmol/L Anion Gap (3-11) BUN (7-18) mg/dl Creatinine (0.6-1.4) mg/dl Est Cr Clr Drug Dosing ml/min Est GFR ( Amer) Est GFR (Non-Af Amer) BUN/Creatinine Ratio (10-20) Glucose (70-99) mg/dl Calcium (8.5-10.1) mg/dl Total Bilirubin (0.2-1) mg/dl AST (15-37) U/L ALT (12-78) U/L Alkaline Phosphatase (45-117) U/L Total Protein (6.4-8.2) gm/dl Albumin (3.4-5.0) gm/dl Globulin (2.5-4.0) gm/dl Albumin/Globulin Ratio (0.9-2) Lipase (73-393) U/L Urine Color Urine Appearance (Clear) Urine pH (4.5-7.5) Ur Specific [place] (1.000-1.030) Urine Protein (Negative) Urine Glucose (UA) (Negative) Urine Ketones (Negative) Urine Blood (Negative) Urine Nitrite (Negative) Urine Bilirubin (Negative) Urine Urobilinogen (Negative) Ur Leukocyte Esterase (Negative) Influenza Type A (PCR) (Neg) Influenza Type B (PCR) (Neg)
[2018-07-15] MEDS: D5W AND 1/2NSS + 20MEQ KCL 20 MEQ/1,000 ML BAG IV SCH (11:17)
[2018-07-16] MEDS: D5W AND 1/2NSS + 20MEQ KCL 20 MEQ/1,000 ML BAG IV SCH (00:03)
[2018-07-16 00:07] VITALS: TEMP 98.1
--- NOTE | 2018-07-16 06:21 | Progress Note ---
Date of Service July 16, 2018 Assessment & Plan (1) Appendicitis: reluctant to go home- will see how he does this am, mobilize d/c IV pain med Acute appendicitis type: unspecified acute appendicitis type Appendicitis type: acute appendicitis Qualified Code(s): K35.80 - Unspecified acute appendicitis Subjective vitals stable- awakened pt some pain- po meds taken last Physical Exam Vital Signs (Past 24 Hours): Last Vital Signs Temp 36.7 C 07/15/18 23:32 Pulse 58 L 07/15/18 23:32 Resp 16 07/15/18 23:32 BP 99/67 L 07/15/18 23:32 Pulse Ox 97 07/15/18 23:32 abd - flat, soft
[2018-07-16 08:05] VITALS: BP 128/76; O2SAT 96
[2018-07-16 12:40] VITALS: PULSE 58
--- NOTE | 2018-07-18 12:15 | Discharge Summary ---
Date of Service July 20, 2018 Admission HPI Per Admitting Provider Yoni is a pleasant 22 year-old male who presented to emergency room with complaint of abdominal pain with associated nausea and vomiting x 3 that began yesterday morning when he woke up. States pain was located in general mid abdomen and now in the right lower side. Sharp pain. States he had 3 episodes of vomiting. Was diagnosed with the flu. Had fever, chills, and weakness on Wednesday. States he hasn't wanted to eat much or drink many fluids so he might be dehydrated. Denies of any changes in his bowel habits, diarrhea, constipation, blood in stools, difficulty urinating, chest pain, shortness of breath, or difficulty breathing. ER work-up included labs which showed no leukocytosis. CT scan of abdomen and pelvis showed dilated hyperemic appendix measuring 10 mm with moderate periappendiceal inflammation but no signs of perforation or abscess consistent with uncomplicated appendicitis. Discharge Data Allergies Allergy/AdvReac Type Severity Reaction Status Date / Time No Known Allergies Allergy Unverified 07/14/18 12:13 Consultations 07/14/18 14:07 ED Decision to Admit Stat Procedures Performed Operation Date: 07/14/18 09:20 Actual Procedures p Laparoscopic Appendectomy(Not Applicable) - Hossein Rollins MD Ordered Studies 07/14/18 11:12 CT abd pelvis IV con only Stat Hospital Course (1) Appendicitis: reluctant to go home- will see how he does this am, mobilize d/c IV pain med Discharge Plan Discharge Items Patient Disposition: Home - Self-Care Reason For Visit: ACUTE APPENDICITIS Discharge Diagnosis: same Discharge Goals: Decrease discomfort and Improve function Activity: Per 'Additional Instructions' section Non-emergency contact: Surgeon Call non-emergency contact if: your symptoms worsen, your pain is not controlled, your pain is worsening, your pain is concerning for you, you have a fever, your temperature is above 101, your wound has increased redness and your wound has increased drainage Follow-up/Referrals: Hossein Rollins MD [Physician] - (Follow-up in surgical office in 1-2 weeks, please call office at [phone] to make an appointment) PCP,NO [Primary Care Provider] - Diet: Regular Addtl Provider Instructions: Post-Surgical ~Discharge Instructions Activity Recommendations: - lifting limitation: (10 pounds for 2 weeks), - exercise/sex/sports limit: (nonstrenuous for 2 weeks), - driving or machine use limit: (none for 1 week), - Shower/bathe limit: (may shower beginning tomorrow) Diet: - Resume previous diet SPECIAL CARE INSTRUCTIONS: - May shower in 24 hours. Let water run over area and pat dry. - Leave steri strips on for one week. - Call the surgeon's office with any questions or concerns - - (ex. temperature higher than 101 degrees F, excessive bleeding or pain). MEDICATIONS: - Resume previous medications unless instructed otherwise by your surgeon. - Ibuprofen 600 mg every 6 hours with food - Percocet 1 every 4 hours, as needed for pain - May take OTC stool softener (Colace) daily or twice a day while taking pain medication to prevent constipation. Drink plenty of liquids and avoid foods that constipate. If those measures do not work, you may take Miralax or Milk of Magnesia. FOLLOW UP VISIT: - If not already scheduled, please call the office to schedule a two week follow-up appointment. Office number Prescriptions: New oxycodone-acetaminophen [Percocet] 5-325 mg Tablet 1 tab PO Q4H PRN (Reason: pain) Qty: 18 RF: 0 No Action No Known Home Medications RF: 0 Stand-Alone Forms: [facility], [facility], Work/School Release (Inpt) Discharge Orders: Discharge Order (Routine); Ordered 07/16/18 Ordered By: Manas Meza Admission Data Admit Date/Time: 07/14/18 16:26 Attending Provider: Karla Ryan Admit Provider: Karla Ryan Primary Care Provider: PCP,NO Other Providers: Karla Ryan Service: Surgical Services Other Interventions: Discharge Summary Assessment (RN) Last Done: 07/16/18 12:39 Pending Studies at Discharge: Yes (appendix pathology, will be reviewed at follow-up visit) DC Date/Time DO NOT enter until pt leaves facility: 07/16/18 14:19
--- NOTE | 2018-07-21 09:08 | Discharge Summary ---
Date of Service July 21, 2018 Admission HPI Per Admitting Provider Yoni is a pleasant 22 year-old male who presented to emergency room with complaint of abdominal pain with associated nausea and vomiting x 3 that began yesterday morning when he woke up. States pain was located in general mid abdomen and now in the right lower side. Sharp pain. States he had 3 episodes of vomiting. Was diagnosed with the flu. Had fever, chills, and weakness on Wednesday. States he hasn't wanted to eat much or drink many fluids so he might be dehydrated. Denies of any changes in his bowel habits, diarrhea, constipation, blood in stools, difficulty urinating, chest pain, shortness of breath, or difficulty breathing. ER work-up included labs which showed no leukocytosis. CT scan of abdomen and pelvis showed dilated hyperemic appendix measuring 10 mm with moderate periappendiceal inflammation but no signs of perforation or abscess consistent with uncomplicated appendicitis. Principal Diagnosis Acute appendicitis Influenza Discharge Data Allergies Allergy/AdvReac Type Severity Reaction Status Date / Time No Known Allergies Allergy Unverified 07/14/18 12:13 Consultations 07/14/18 14:07 ED Decision to Admit Stat Procedures Performed Operation Date: 07/14/18 09:20 Actual Procedures p Laparoscopic Appendectomy(Not Applicable) - Hossein Rollins MD Ordered Studies 07/14/18 11:12 CT abd pelvis IV con only Stat Hospital Course (1) Acute appendicitis: Patient was taken to operating room for laparoscopic appendectomy possible open. Patient found to have acute appendicitis without perforation or abscess. Patient tolerated procedure well without any difficulties. Was transferred to recovery room and then to medical/surgical floor for post operative care. He was started on regular diet as tolerated, IV Fluids, PO Percocet with breakthrough Morphine IV prn pain, IV ZOfran pran nausea, activity as tolerated, SCDs for DVT prophylaxis and incentive spirometry. POD # 1 vital stable, moderate post op pain still requiring IV pain medications, no n/v, has not ate much just crackers and only ambulating to bathroom. Reluctant to go home just yet. Patient was kept for one more evening for pain control. Diet was continued as tolerated. Encouraged oob to chair and ambulate. POD # 2 vitals stable, pain controlled. Still reluctant to go home but was doing well and was discharged home on POD # 2 in stable condition. Total Time Total Time Spent Total Time Spent (In Minutes): 15 Total Time Includes: Examination of the Patient and Discharge Planning Discharge Plan Discharge Items Patient Disposition: Home - Self-Care Reason For Visit: ACUTE APPENDICITIS Discharge Diagnosis: same Discharge Goals: Decrease discomfort and Improve function Activity: Per 'Additional Instructions' section Non-emergency contact: Surgeon Call non-emergency contact if: your symptoms worsen, your pain is not controlled, your pain is worsening, your pain is concerning for you, you have a fever, your temperature is above 101, your wound has increased redness and your wound has increased drainage Follow-up/Referrals: Hossein Rollins MD [Physician] - (Follow-up in surgical office in 1-2 weeks, please call office at [phone] to make an appointment) PCP,NO [Primary Care Provider] - Diet: Regular Addtl Provider Instructions: Post-Surgical ~Discharge Instructions Activity Recommendations: - lifting limitation: (10 pounds for 2 weeks), - exercise/sex/sports limit: (nonstrenuous for 2 weeks), - driving or machine use limit: (none for 1 week), - Shower/bathe limit: (may shower beginning tomorrow) Diet: - Resume previous diet SPECIAL CARE INSTRUCTIONS: - May shower in 24 hours. Let water run over area and pat dry. - Leave steri strips on for one week. - Call the surgeon's office with any questions or concerns - - (ex. temperature higher than 101 degrees F, excessive bleeding or pain). MEDICATIONS: - Resume previous medications unless instructed otherwise by your surgeon. - Ibuprofen 600 mg every 6 hours with food - Percocet 1 every 4 hours, as needed for pain - May take OTC stool softener (Colace) daily or twice a day while taking pain medication to prevent constipation. Drink plenty of liquids and avoid foods that constipate. If those measures do not work, you may take Miralax or Milk of Magnesia. FOLLOW UP VISIT: - If not already scheduled, please call the office to schedule a two week follow-up appointment. Office number Prescriptions: New oxycodone-acetaminophen [Percocet] 5-325 mg Tablet 1 tab PO Q4H PRN (Reason: pain) Qty: 18 RF: 0 No Action No Known Home Medications RF: 0 Stand-Alone Forms: [facility], [facility], Work/School Release (Inpt) Discharge Orders: Discharge Order (Routine); Ordered 07/16/18 Ordered By: Manas Meza Admission Data Admit Date/Time: 07/14/18 16:26 Attending Provider: Karla Ryan Admit Provider: Karla Ryan Primary Care Provider: PCP,NO Other Providers: Karla Ryan Service: Surgical Services Other Interventions: Discharge Summary Assessment (RN) Last Done: 07/16/18 12:39 Pending Studies at Discharge: Yes (appendix pathology, will be reviewed at follow-up visit) DC Date/Time DO NOT enter until pt leaves facility: 07/16/18 14:19
== END 2018-07-16 14:19 | disposition home or self-care (01) ==
LOC: 3N 10:10 → ED 10:10 → 3N 17:31